=== PATIENT | male | born 1995 | race African-American/Black ===

== ENCOUNTER 2021-04-09 22:49 | Emergency (ER) | payer SELFPAY ==
[2021-04-09] MEDS ORDERED: Acetaminophen 500 MG TAB ONE (23:18)
[2021-04-09] MEDS ORDERED: Ketorolac Tromethamine 30 MG/ML VIAL ONE (23:18)
[2021-04-09] MEDS ORDERED: Ondansetron ODT 4 MG TAB ONE (23:19)
[2021-04-10 18:49] LABS: SARS-CoV-2 PCR by NAA Not Detected (NotDetected)
== END 2021-04-10 00:35 | disposition home or self-care (01) ==
LOC: CSHERS 22:49
DX: J11.1 Influenza due to unidentified influenza virus with other respiratory manifestations (principal); Z20.822 Contact with and (suspected) exposure to COVID-19; F17.210 Nicotine dependence, cigarettes, uncomplicated
CPT/HCPCS: 87804; 96372; 99283; J1885; Q0162; U0003; U0005

== ENCOUNTER 2021-09-15 22:18 | Emergency (ER) | payer SELFPAY ==
[2021-09-15] MEDS ORDERED: Acetaminophen 500 MG TAB ONE (22:52)
[2021-09-15] MEDS ORDERED: Ondansetron ODT 4 MG TAB ONE (22:52)
[2021-09-15] MEDS ORDERED: Ondansetron PF 4 MG/2 ML Vial ONE (23:53)
[2021-09-16 00:07] LABS: ALT (SGPT) 24 U/L (8-55); AST (SGOT) 21 U/L (5-34); Albumin 4.5 g/dL (3.5-5.0); Alkaline Phosphatase 51 U/L (40-110); Anion Gap 18 mmol/L (10-20); BUN (Urea Nitrogen) 14 mg/dL (8.9-20.6); Bilirubin, Total 0.3 mg/dL (0.2-1.2); Calc. Creatinine Clearance 0 mL/min (70-130); Calcium 9.5 mg/dL (7.8-10.44); Carbon Dioxide 22 mmol/L (22-29); Chloride 105 mmol/L (98-107); Estimated GFR 72; Globulin 2.9 g/dL (2.4-3.5); Glucose 109 mg/dL (70-105); Potassium 3.5 mmol/L (3.5-5.1); Protein, Total 7.4 g/dL (6.0-8.3); Sodium 141 mmol/L (136-145)
[2021-09-16 00:25] LABS: #Monocytes 0.9 10x3/uL (0.0-1.1); #Neutrophils 5.4 10x3/uL (1.5-8.4); %Basophils 0.5 % (0.0-2.0); %Eosinophils 0.2 % (0.0-6.0); %Lymphocytes 4.1 % (18.0-47.0); %Monocytes 13.7 % (0.0-10.0); Hemoglobin 12.7 g/dL (13.5-17.5); Mean Corpuscular Hemoglobin 30.2 pg (27.0-33.0); Mean Corpuscular Volume 88.8 fl (81.2-95.1); Mean Platelet Volume 9.9 fl (7.4-10.4); Platelet Count 191 10x3/uL (150-450); RBC Distribution Width 12.6 % (11.5-14.5); White Blood Cell (WBC) Count 6.6 10x3/uL (3.5-10.5)
[2021-09-16] MEDS ORDERED: Metoclopramide HCl 10 MG/2 ML VIAL ONE (02:09)
[2021-09-16] MEDS ORDERED: diphenhydrAMINE 50 MG/ML VIAL ONE (02:09)
== END 2021-09-16 00:50 | disposition home or self-care (01) ==
LOC: CSHERS 22:18
DX: U07.1 COVID-19 (principal); F17.210 Nicotine dependence, cigarettes, uncomplicated
CPT/HCPCS: 71045; 80053; 85025; 96361; 96374; J1200; J2405; J2765; Q0162; U0003; U0005

== ENCOUNTER 2023-11-25 03:50 | Emergency (ER) | payer SELFPAY ==
[2023-11-25] MEDS ORDERED: Dexamethasone 4 MG TAB ONE (04:11)
[2023-11-25] MEDS ORDERED: Acetaminophen 500 MG TAB ONE (04:11)
[2023-11-25 07:16] LABS: Influenza A by NAA Not Detected (NotDetected); Influenza B by NAA Not Detected (NotDetected); SARS-CoV-2 NAA Rapid Test Not Detected (NotDetected)
== END 2023-11-25 05:39 | disposition home or self-care (01) ==
LOC: CSHERS 03:50
DX: B34.9 Viral infection, unspecified (principal); F17.210 Nicotine dependence, cigarettes, uncomplicated
CPT/HCPCS: 99284; J8540